=== PATIENT | male | born 1990 | race Two or more races ===

== ENCOUNTER 2023-03-15 08:06 | Emergency (ER) | payer OTHER ==
[~2023-03-15] VITALS: Ht 152.4 cm; Wt 75.3 kg
[2023-03-15 09:40] LABS: HEMATOCRIT 41.3 % (39.0-48.0); HEMOGLOBIN 14.2 g/dL (13-16.00); MEAN CELL VOLUME 77.2 fL (80.0-100.00); MEAN CORPUSCULAR HEMOGLOBIN 26.5 pg (27.00-32.0); MEAN CORPUSCULAR HGB CONC 34.4 g/dl (32.0-36.0); PLATELET COUNT 176 K/uL (150-450); RED BLOOD COUNT 5.36 M/uL (4.00-6.00)
[2023-03-15 09:51] LABS: PH,URINE 5.5 (5.0-8.0); URINE APPEARANCE Cloudy; URINE BILIRRUBIN Negative (NEGATIVE); URINE BLOOD Negative; URINE COLOR Dark Yellow; URINE GLUCOSE Negative (NEGATIVE); URINE LEUKOCYTE Trace; URINE NITRATE Negative; URINE PROTEIN 30 (NEGATIVE)
[2023-03-15 09:52] LABS: URINE BACTERIA 20.1 uL (0.0-1933); URINE EPITHELIAL CELLS 9.7 uL (0.0-38.8); URINE RBC 9.7 uL (0.0-20.8); URINE WBC 28.5 uL (0.0-23.2)
[2023-03-15 10:21] LABS: ALBUMIN 4.2 gm/dL (3.4-5.0); BILIRUBIN TOTAL 0.51 mg/dL (0.3-1.2); CALCIUM 9.8 mg/dL (8.5-10.1); CREATININE SERUM 1.31 mg/dL (0.70-1.30); GFR 62.27; GLOBULINA 3.7 G/DL (2.4-3.5); POTASSIUM 3.98 mEq/L (3.5-5.1); TOTAL PROTEIN 7.9 gm/dL (6.4-8.2)
== END 2023-03-15 11:09 | disposition home or self-care (01) ==
LOC: ER 08:07
PROVIDERS: General Practice
DX: B34.9 Viral infection, unspecified (principal); R53.81 Other malaise; Z20.822 Contact with and (suspected) exposure to COVID-19